=== PATIENT | female | born 1985 | race Caucasian/White ===

== ENCOUNTER 2016-05-06 11:21 | Observation (INO) | payer OTHER ==
[~2016-05-06] VITALS: Ht 170.2 cm; Wt 70.8 kg
--- NOTE | 2016-05-06 18:12 | HHI.HP ---
HPI Chief Complaint 24 week IUP with severe maternal mitral value regurgitation Date Seen: May 06, 2016 Time Seen: 18:11 Travel History International Travel<30 Days: No Contact w/Intl Traveler<30Days: No Known Affected Area: No History of Present Illness HPI 30 yo swf at 24+ weeks brought to perinatology for evaluation today from [facility]. I met her two weeks ago when she was brought to my office from care home. She has since been diverted to [facility]. She has a hx of IVDA and unfortunately developed CRUZ. in her first trimester. She is currently not using any opioids and residing at [facility]. She is complaining of SOB. She has no symptoms of fever, chills, thrombophlebitis. No symptoms of labor. GFM. She is being kept 23 hours to evaluate her cardiac status as she enters her third trimester to and make multidisciplinary plans for delivery and post care. Para: 2 : 5 Allergies-Medications (Allergen,Severity, Reaction): Coded Allergies: Cipro (Verified Allergy, Severe, Rash, 11/17/15) Home Meds No Active Prescriptions or Reported Meds Physical Exam Narrative GENERAL: Well-nourished, well-developed patient. SKIN: Warm and dry. HEAD: Normocephalic and atraumatic. EYES: No scleral icterus. No injection or drainage. ENT: No nasal drainage noted. Mucous membranes pink. Airway patent. NECK: Supple, trachea midline. No JVD. CARDIOVASCULAR:4/4 holosystolic murmur through chest and back. Not tachycardic. ? S3 EXTREMITIES: No cyanosis or edema. BACK: Nontender without obvious deformity. No CVA tenderness. NEUROLOGICAL: Awake and alert. Motor and sensory grossly within normal limits. Five out of 5 muscle strength in all muscle groups. Normal speech. See level 2 sono with reassuring evaluation Data Data Orders Us Ob Fet Echo/Dop Fl/Col/Comp (05/06/16 ) Diet Regular Basic (05/06/16 Lunch) Consult Cardiology (05/06/16 ) Echo 2d Comp W/Dopp(Routine) (05/06/16 ) ^ Activity (05/06/16 14:31) ^ Heart (05/06/16 14:31) Resp Request For Service (05/06/16 ) Vital Signs (Adult) BRAD.Q4H (05/06/16 14:31) (Hub Use Only)Inp Phy Cons/Ref (05/06/16 ) Assessment/Plan Problem List: (1) Intrauterine (2) Mitral valve regurgitation due to infection (3) Adjustment disorder with mixed anxiety and depressed mood Assessment and Plan consult and echo results pending from Dr. Tao Sanchez plan to return to [facility] and watch for cardiac decompensation in third trimester or peripartum with plans made on how to address. Karuna Fonseca MD May 06, 2016 18:12 Karuna Fonseca MD May 06, 2016 18:12
[2016-05-06 19:50] VITALS: BP 101/52; PULSE 92
[2016-05-06 19:52] VITALS: RESP 18; TEMP 98.5
--- NOTE | 2016-05-06 20:01 | EC ---
Study Study Date:05/06/2016 STUDY CONCLUSIONS SUMMARY - Left ventricle: The cavity size was normal. Systolic function was normal. The estimated ejection fraction was in the range of 60% to 65%. Wall motion was normal; there were no regional wall motion abnormalities. - Mitral valve: There was a mobile vegetation on the anterior leaflet. Moderate to severe regurgitation. - Tricuspid valve: Moderate regurgitation. - Pulmonary arteries: PA peak pressure: 31mm Hg (S). If LV function is below 40, please consider prescribing an ACEI or ARB or document rationale for non-use. PROCEDURE DATA STUDY STATUS: Elective. Procedure: Transthoracic echocardiography. Image quality was good. Scanning was performed from the parasternal, apical, and subcostal acoustic windows. Study completion: The patient tolerated the procedure well. Transthoracic echocardiography. M-mode, complete 2D, complete spectral Doppler, and color Doppler. Height: Height: 67in. Weight: Weight: 155.7lb. Body mass index: BMI: 24.4kg/m^2. Body surface area: BSA: 1.82m^2. Patient status: Inpatient. CARDIAC ANATOMY LEFT VENTRICLE: The cavity size was normal. Systolic function was normal. The estimated ejection fraction was in the range of 60% to 65%. Wall motion was normal; there were no regional wall motion abnormalities. AORTIC VALVE: The valve appears to be grossly normal. Doppler: There was no stenosis. No significant regurgitation. Valve area: 2.63cm^2 (Vmax). Indexed valve area: 1.45cm^2/m^2 (Vmax). MITRAL VALVE: There was a mobile vegetation on the anterior leaflet. Doppler: There was no evidence for stenosis. Moderate to severe regurgitation. Peak gradient: 8mm Hg (D). LEFT ATRIUM: The atrium was at the upper limits of normal in size. PULMONIC VALVE: The valve appears to be grossly normal. Doppler: There was no evidence for stenosis. Trace to mild regurgitation. TRICUSPID VALVE: The valve appears to be grossly normal. Doppler: There was no evidence for stenosis. Moderate regurgitation. PERICARDIUM: There was no pericardial effusion. Patient weight: 155.7lb _Ejection fraction:_ 65-75% _Fractional shortening:_ 32% up to 5Kg 5-11.5Kg 11.6-22.9Kg 23-45Kg 45-57Kg Aortic Root 7-13 <17 13-22 17-27 17-27 LA diam 6-13 <23 24-38 33-47 37-40 RVID 10-17 7-15 7-15 7-18 8-17 LVIDd 12-22 <32 24-38 33-47 37-40 LVPW 2-4 3-6 5-7 6-8 7-8 IVS 2-4 3-6 5-7 6-8 7-8 BASIC MEASUREMENTS ADULT NORMAL Left ventricle LV internal dimension, ED, chordal *60.4 mm 43-52 level, PLAX LV internal dimension, ES, chordal *40.9 mm 23-38 level, PLAX Fractional shortening, chordal level, 32 % >29 PLAX LV posterior wall thickness, ED 7.33 mm IVS/LVPW ratio, ED 1.02 <1.3 Ventricular septum Septal thickness, ED 7.48 mm Aortic valve Leaflet separation 16 mm 15-26 BASIC MEASUREMENTS ADULT NORMAL Aortic valve Leaflet separation 16 mm 15-26 Aorta Root diameter, ED *18 mm 20-37 Left atrium Anterior-posterior dimension, ES 37 mm 19-40 Anterior-posterior dimension index, ES 2.03 cm/m^2 <2.2 LA/aortic root ratio 2.06 DOPPLER MEASUREMENTS ADULT NORMAL Main pulmonary artery Pressure, S *31 mm Hg =30 Pressure, ED 16 mm Hg Aortic valve Peak velocity, S 124 cm/s Valve area, Vmax 2.63 cm^2 Valve area index, Vmax 1.45 cm^2/m^2 Mitral valve Peak E-wave velocity 140 cm/s Peak A-wave velocity 67.6 cm/s Deceleration time 218 ms 150-230 Peak gradient, D 8 mm Hg Peak E/A ratio 2.1 Maximal regurgitant velocity 348 cm/s Tricuspid valve Regurgitant peak velocity 265 cm/s Peak RV-RA gradient, S 28 mm Hg Maximal regurgitant velocity 265 cm/s Systemic veins Estimated CVP 10 mm Hg Right ventricle RV pressure, S *38 mm Hg <30 Pulmonic valve Peak velocity, S 128 cm/s Regurgitant velocity, ED 124 cm/s LEGEND: Mean values are shown as u=mean value. Asterisk (*) alarcon values outside specified normal range. Prepared and signed by Marco Aponte [id number]
[2016-05-06 23:23] VITALS: BP 102/57; PULSE 86
[2016-05-06 23:25] VITALS: RESP 18
[2016-05-06 23:26] VITALS: TEMP 98.3
[2016-05-07 04:56] VITALS: BP 95/60; PULSE 83; RESP 16; TEMP 98.3
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
--- NOTE | 2016-05-07 08:13 | PD.OB.ANTE ---
Subjective Diagnosis: (1) Intrauterine (2) Mitral valve regurgitation due to infection (3) Adjustment disorder with mixed anxiety and depressed mood Interval History Quiet night with good movement good sleep in supine position with no SOB or orthopnea no contractions Objective Vital Signs Vital Signs Date Time Temp Pulse Resp B/P Pulse Ox O2 Delivery O2 Flow Rate FiO2 05/07/16 04:56 98.3 16 05/07/16 04:56 83 95/60 05/06/16 23:26 98.3 05/06/16 23:25 18 05/06/16 23:23 86 102/57 05/06/16 19:52 98.5 18 05/06/16 19:50 92 101/52 Physical Exam GENERAL: Well-nourished, well-developed patient. CARDIOVASCULAR: Regular rate and rhythm without murmurs, gallops, or rubs. RESPIRATORY: Breath sounds equal bilaterally. No accessory muscle use. ABDOMEN/GI: Abdomen soft, non-tender. Fundus: [-] GENITOURINARY: External Genitalia: intact and normal in appearance cervix closed strip appropriate for age level 2 sono reassuring murmur present EXTREMITIES: No cyanosis or edema, non-tender, without signs of DVT. Assessment and Plan Problem List: (1) Intrauterine Status: Acute (2) Mitral valve regurgitation due to infection Status: Acute (3) Adjustment disorder with mixed anxiety and depressed mood Status: Acute Assessment and Plan return to [facility] today watch for decompensation develop care plan for delivery Karuna Fonseca MD May 07, 2016 08:13
--- NOTE | 2016-05-07 08:14 | HHI.DCPOC ---
Discharge Care Plan Report Symptoms to Your Doctor -Temperate above 100.5 degrees -Redness, of incision or excessive or foul smelling drainage -Unusual pain or calf pain -Increased vaginal bleeding -Painful or difficulty urinating -Feelings of extreme sadness or anxiety after 2 weeks Goals to Promote Your Health * To prevent worsening of your condition and complications * To maintain your health at the optimal level Directions to Meet Your Goals Take your medications as prescribed Follow your dietary instruction Follow activity as directed Ensure plenty of rest for recovery Drink fluids for hydration Keep your appointments as scheduled Take your immunizations and boosters as scheduled If your symptoms worsen call your PCP, if no PCP go to Urgent Care Center or Emergency Room Smoking is Dangerous to Your Health. Avoid second hand smoke Call the 24-hour crisis hotline for domestic abuse at Karuna Fonseca MD May 07, 2016 08:14
[2016-05-07 09:31] VITALS: BP 91/54; PULSE 85
[2016-05-07 09:32] VITALS: RESP 18; TEMP 98.3
--- NOTE | 2016-05-07 11:55 | PD.CARD.PN ---
Subjective Subjective Remarks No chest pain, no shortness of breath Objective Vital Signs / I&O Vital Signs Date Time Temp Pulse Resp B/P Pulse Ox O2 Delivery O2 Flow Rate FiO2 05/07/16 09:32 98.3 18 05/07/16 09:31 85 91/54 05/07/16 04:56 98.3 16 05/07/16 04:56 83 95/60 05/06/16 23:26 98.3 05/06/16 23:25 18 05/06/16 23:23 86 102/57 05/06/16 19:52 98.5 18 05/06/16 19:50 92 101/52 Physical Exam GENERAL: NAD, AAOx3 SKIN: Warm and dry. HEAD: Atraumatic. Normocephalic. EYES: Pupils equal and round. No scleral icterus. No injection or drainage. ENT: No nasal bleeding or discharge. Mucous membranes pink and moist. NECK: Trachea midline. No JVD. CARDIOVASCULAR: Regular rate and rhythm. 3/6 holosystolic murmur at the apex, radiating to the back/throughout the chest RESPIRATORY: No accessory muscle use. Clear to auscultation. Breath sounds equal bilaterally. GASTROINTESTINAL: Abdomen soft, non-tender, nondistended. Hepatic and splenic margins not palpable. MUSCULOSKELETAL: Extremities without clubbing, cyanosis, or edema. No obvious deformities. NEUROLOGICAL: Awake and alert. No obvious cranial nerve deficits. Motor grossly within normal limits. Five out of 5 muscle strength in the arms and legs. Normal speech. PSYCHIATRIC: Appropriate mood and affect; insight and judgment normal. Assessment and Plan Problem List: (1) Intrauterine (2) Mitral valve regurgitation due to infection (3) Endocarditis (4) IVDU (intravenous drug user) Assessment and Plan 1) Endocarditis from previous IVDU 2) Severe MR, no change from previous 3) Discussed with Dr. Fonseca, concern for severe MR and symptoms, NYHA 2-3, still with a ways to go with her and increased blood volume may tip her towards NYHA 3, would consider delivery/care at a tertiary center with cardiac monitoring Marco Aponte DO May 07, 2016 11:55
[2016-05-07 12:38] VITALS: BP 99/61; PULSE 89; RESP 16; TEMP 98.2
== END 2016-05-07 13:45 | disposition home or self-care (01) ==
LOC: HPND 11:21 → H2EA 12:43 → INTOOBSV 12:43
PROVIDERS: ADMIT Obstetrics & Gynecology; ATTEND Obstetrics & Gynecology
DX: O99.413 Diseases of the circulatory system complicating pregnancy, third trimester (principal); I34.8 Other nonrheumatic mitral valve disorders; F19.10 Other psychoactive substance abuse, uncomplicated; F43.10 Post-traumatic stress disorder, unspecified; O09.72 Supervision of high risk pregnancy due to social problems, second trimester; O99.342 Other mental disorders complicating pregnancy, second trimester; F43.23 Adjustment disorder with mixed anxiety and depressed mood; Z3A.24 24 weeks gestation of pregnancy
CPT/HCPCS: 76811; 76825; 76827; 93306; 93325; G0378

== ENCOUNTER 2016-06-03 10:05 | Observation (INO) | payer MEDICAID, OTHER ==
[2016-06-03] VITALS (8 sets, daily range): BP systolic 97–105; BP diastolic 57–68; PULSE 80–95; RESP 20; TEMP 97.7–98.1; O2SAT 100
[2016-06-03 14:13] LABS: AUTOMATED NEUTROPHIL # 6.3 TH/MM3 (1.8-7.7); BASOPHIL % 0.4 % (0.0-2.0); EOSINOPHIL # 0.1 TH/MM3 (0-0.4); HEMO FLAGS DIFF FINAL; LYMPH % 19.1 % (9.0-44.0); LYMPHOCYTE # 1.6 TH/MM3 (1.0-4.8); MEAN CELL VOLUME 99.3 FL (80.0-100.0); MEAN CORPUSCULAR HEMOGLOBIN 33.9 PG (27.0-34.0); MEAN CORPUSCULAR HGB CONC 34.2 % (32.0-36.0); MONO % 6.3 % (0.0-8.0); NEUT % 73.2 % (16.0-70.0); PLATELET COUNT 169 TH/MM3 (150-450); RED BLOOD COUNT 3.52 MIL/MM3 (4.00-5.30); WHITE BLOOD COUNT 8.5 TH/MM3 (4.0-11.0)
--- NOTE | 2016-06-03 20:49 | HHI.HP ---
HPI Chief Complaint increasing shortness of breath, fatigue due to severe mitral regurgitation (due to CRUZ in first trimester) Currently 28 weeks Date Seen: Jun 03, 2016 Time Seen: 12:00 Travel History International Travel<30 Days: No Contact w/Intl Traveler<30Days: No Known Affected Area: No History of Present Illness HPI 30 yo wf at 28 2/7 weeks EGA who resides currently at [facility]. She was diagnosed with CRUZ in her first trimester of this and developed a significant mitral regurgitation. Her treatment at that time was truncated by her AMA departure. She was then incarcerated and diverted to [facility], I met her at about 22 weeks EGA. She was evaluated here on antepartum four weeks ago by Tao Dotson. It was recommended that she deliver at a tertiary care center, due to the profound cardiovascular changes of delivery and risk for decompensation. I have been in the process of getting her medicaid HMO changed to one accepted by [facility]. We hope to have her evaluated there soon. She is currently at [facility] and trying to participate in the programs. 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 She know states walking down a penny produces profound fatique. She has no productive cough. No fever or chills. She can lay down flat. There is GFM. No leaking or bleeding. She feels her symptoms are progressive. History Past Medical History Narrative Medical history of IV Drug use--over one year's total duration, She is currently in recovery off all opioids and benzos. Obstetric History Obstetric History Social History Alcohol Use: Yes Tobacco Use: Yes Substance Abuse: Yes Allergies-Medications (Allergen,Severity, Reaction): Coded Allergies: Cipro (Verified Allergy, Severe, Rash, 11/17/15) Home Meds No Active Prescriptions or Reported Meds Review of Systems HENT: Lightheadedness Cardiovascular: Tachycardia Respiratory: Short of Breath Gastrointestinal: Loss of Appetite Psychiatric: Substance Abuse Physical Exam Vital Signs Date Time Temp Pulse Resp B/P Pulse Ox O2 Delivery O2 Flow Rate FiO2 06/03/16 19:51 97.7 20 06/03/16 19:51 95 105/68 100 06/03/16 18:11 97.9 06/03/16 18:11 82 20 97/57 06/03/16 14:00 89 06/03/16 12:50 81 06/03/16 12:45 82 06/03/16 12:40 80 Narrative GENERAL: Well-nourished, well-developed patient. SKIN: Warm and dry. HEAD: Normocephalic and atraumatic. EYES: No scleral icterus. No injection or drainage. ENT: No nasal drainage noted. Mucous membranes pink. Airway patent. NECK: Supple, trachea midline. No JVD. CARDIOVASCULAR: Regular rate and rhythm 5/6 loud holosystolic murmur over mitral area. heard through the back RESPIRATORY: Breath sounds equal bilaterally. No accessory muscle use. BREASTS: Bilateral exam showed no masses , no retractions, no nipple discharge. ABDOMEN/GI: Abdomen soft, non-tender, bowel sounds present, no rebound, no guarding Gravid to [-] weeks size 28 cm FHT's: Category one cerix 1cm long EXTREMITIES: No cyanosis or edema. BACK: Nontender without obvious deformity. No CVA tenderness. NEUROLOGICAL: Awake and alert. Motor and sensory grossly within normal limits. Five out of 5 muscle strength in all muscle groups. Normal speech. Data Data Orders Us Ob Repeat/Fu(Growth) (06/03/16 ) Vital Signs (Adult) BRAD.Q4H (06/03/16 12:28) ^ Heart (06/03/16 12:28) Diet Regular Basic (06/03/16 Lunch) ^ Instruction (06/03/16 12:28) Complete Blood Count With Diff (06/03/16 12:28) Hepatitis C Rna Genotype (06/03/16 12:28) ^ Call Physician (06/03/16 12:28) Consult Cardiology (06/03/16 ) (Hub Use Only)Inp Phy Cons/Ref (06/03/16 ) Labs Laboratory Tests Test 06/03/16 14:03 White Blood Count 8.5 Red Blood Count 3.52 Hemoglobin 11.9 Hematocrit 35.0 Mean Corpuscular Volume 99.3 Mean Corpuscular Hemoglobin 33.9 Mean Corpuscular Hemoglobin 34.2 Concent Red Cell Distribution Width 13.0 Platelet Count 169 Mean Platelet Volume 8.3 Neutrophils (%) (Auto) 73.2 Lymphocytes (%) (Auto) 19.1 Monocytes (%) (Auto) 6.3 Eosinophils (%) (Auto) 1.0 Basophils (%) (Auto) 0.4 Neutrophils # (Auto) 6.3 Lymphocytes # (Auto) 1.6 Monocytes # (Auto) 0.5 Eosinophils # (Auto) 0.1 Basophils # (Auto) 0.0 CBC Comment DIFF FINAL Differential Comment Assessment/Plan Assessment and Plan 28 week IUP with increasing SOB and fatigue perinatologist today very concerned that she is decompensating clinically. Asked for us to obtain cardiology follow up to assess for deterioration in maternal status. This is not possible outslide the hospital so she will be placed on observation,. I am working on transfer of care to [facility] or reassurance than she can deliver here safely. Karuna Fonseca MD Jun 03, 2016 20:49
[2016-06-04] VITALS (14 sets, daily range): BP systolic 83–111; BP diastolic 48–63; PULSE 79–95; RESP 18–20; TEMP 97.8–98.2; O2SAT 98–100
--- NOTE | 2016-06-04 13:12 | PD.OB.ANTE ---
Subjective Interval History Placed in house for observation and evaluation of cardiac status and able to tolerate physical activity She has severe mitral regurg and a third trimester developing fetus She had to quit working in the kitchen at [facility] and cannot complete her expected tasks, due to shortness of breath and extreme fatigue Antepartum ROS: Reports: movement normal Objective Vital Signs Vital Signs Date Time Temp Pulse Resp B/P Pulse Ox O2 Delivery O2 Flow Rate FiO2 06/04/16 12:37 95 18 98/54 98 06/04/16 12:37 86 06/04/16 12:37 97.8 06/04/16 08:24 84 100/60 06/04/16 08:00 83 19 06/04/16 07:00 98.2 06/04/16 04:41 20 06/04/16 04:33 83 06/04/16 04:33 97.9 107/57 99 06/03/16 23:09 98.1 06/03/16 23:08 90 105/57 06/03/16 23:08 20 06/03/16 19:51 97.7 20 06/03/16 19:51 95 105/68 100 06/03/16 18:11 97.9 06/03/16 18:11 82 20 97/57 06/03/16 14:00 89 Lab & Micro Results Test 06/03/16 06/04/16 14:03 06:48 White Blood Count 8.5 TH/MM3 Red Blood Count 3.52 MIL/MM3 Hemoglobin 11.9 GM/DL Hematocrit 35.0 % Mean Corpuscular Volume 99.3 FL Mean Corpuscular Hemoglobin 33.9 PG Mean Corpuscular Hemoglobin 34.2 % Concent Red Cell Distribution Width 13.0 % Platelet Count 169 TH/MM3 Mean Platelet Volume 8.3 FL Neutrophils (%) (Auto) 73.2 % Lymphocytes (%) (Auto) 19.1 % Monocytes (%) (Auto) 6.3 % Eosinophils (%) (Auto) 1.0 % Basophils (%) (Auto) 0.4 % Neutrophils # (Auto) 6.3 TH/MM3 Lymphocytes # (Auto) 1.6 TH/MM3 Monocytes # (Auto) 0.5 TH/MM3 Eosinophils # (Auto) 0.1 TH/MM3 Basophils # (Auto) 0.0 TH/MM3 CBC Comment DIFF FINAL Differential Comment Glucose 1 Hour Challenge 136 MG/DL Physical Exam GENERAL: Well-nourished, well-developed patient. CARDIOVASCULAR: Regular rate and rhythm grade 5 holosystolic murmur heard throughout chest and back. RESPIRATORY: Breath sounds equal bilaterally. No accessory muscle use. No wheezes or rhonci ABDOMEN/GI: Abdomen soft, non-tender. 29 strip category EXTREMITIES: No cyanosis or edema, non-tender, without signs of DVT. Assessment and Plan Assessment and Plan 28 week IUP with increasing SOB and fatigue perinatologist concerned that she is decompensating clinically. Asked for us to obtain cardiology follow up to assess for deterioration in maternal status. This is not possible outslide the hospital so she will be placed on observation, . We will also assess physical activity tolerance. I am working on transfer of care to [facility] or reassurance than she can deliver here safely. Karuna Fonseca MD Jun 04, 2016 13:12
--- NOTE | 2016-06-04 20:32 | PD.OB.ANTE ---
Subjective Interval History Evaluation by physical therapy reassuring O2 saturation good it assistant has not yet been here. will order echo directly Objective Vital Signs Vital Signs Date Time Temp Pulse Resp B/P Pulse Ox O2 Delivery O2 Flow Rate FiO2 06/04/16 19:48 20 100 06/04/16 19:47 87 111/63 06/04/16 16:30 86 101/58 06/04/16 16:00 98.1 98 06/04/16 13:30 89 100 06/04/16 13:20 88 100 06/04/16 12:37 95 18 98/54 98 06/04/16 12:37 86 06/04/16 12:37 97.8 06/04/16 08:24 84 100/60 06/04/16 08:00 83 19 06/04/16 07:00 98.2 06/04/16 04:41 20 06/04/16 04:33 83 06/04/16 04:33 97.9 107/57 99 06/03/16 23:09 98.1 06/03/16 23:08 90 105/57 06/03/16 23:08 20 Lab & Micro Results Test 06/04/16 06:48 Glucose 1 Hour Challenge 136 MG/DL Physical Exam GENERAL: Well-nourished, well-developed patient. CARDIOVASCULAR: Regular rate and rhythm without murmurs, gallops, or rubs. RESPIRATORY: Breath sounds equal bilaterally. No accessory muscle use. ABDOMEN/GI: Abdomen soft, non-tender. Fundus: [-] GENITOURINARY: External Genitalia: intact and normal in appearance Cervix: [-] Dilatation: [-] Effacement: [-] Station: [-] Presentation: [-] Membranes: [-] Uterine Contractions: [-] FHT's: Category: [-] Baseline: [-] Reactive: [-] Variability: [-] Decels: [-] EXTREMITIES: No cyanosis or edema, non-tender, without signs of DVT. Assessment and Plan Assessment and Plan 28 week IUP with increasing SOB and fatigue perinatologist concerned that she is decompensating clinically. Asked for us to obtain cardiology follow up to assess for deterioration in maternal status. This is not possible outslide the hospital so she will be placed on observation, . We will also assess physical activity tolerance. I am working on transfer of care to [facility] or reassurance than she can deliver here safely. Karuna Fonseca MD Jun 04, 2016 20:32
[2016-06-04] MEDS: FAMOTIDINE 20 MG TAB PO SCH (22:45)
[2016-06-05 05:00] VITALS: TEMP 97.9
[2016-06-05 05:08] VITALS: BP 96/57; PULSE 87
[2016-06-05 05:09] VITALS: RESP 18; O2SAT 97
--- NOTE | 2016-06-05 06:54 | PD.OB.ANTE ---
Subjective Interval History Quiet night no new complaints feeling better with rest in last 48 hours good FM still perceives shortness of breath with exertion still fatigued unclear what degree related to normal and what degree related to severe mitral regurgitation Objective Vital Signs Vital Signs Date Time Temp Pulse Resp B/P Pulse Ox O2 Delivery O2 Flow Rate FiO2 06/05/16 05:09 18 97 06/05/16 05:08 87 96/57 06/05/16 05:00 97.9 06/04/16 23:32 82 105/59 06/04/16 23:30 79 06/04/16 23:30 83/48 06/04/16 23:30 97.8 99 06/04/16 19:48 20 100 06/04/16 19:47 87 111/63 06/04/16 16:30 86 101/58 06/04/16 16:00 98.1 98 06/04/16 13:30 89 100 06/04/16 13:20 88 100 06/04/16 12:37 95 18 98/54 98 06/04/16 12:37 86 06/04/16 12:37 97.8 06/04/16 08:24 84 100/60 06/04/16 08:00 83 19 06/04/16 07:00 98.2 Physical Exam GENERAL: Well-nourished, well-developed patient. CARDIOVASCULAR: Regular rate and rhythm without murmurs, gallops, or rubs. RESPIRATORY: Breath sounds equal bilaterally. No accessory muscle use. ABDOMEN/GI: Abdomen soft, non-tender. Fundus: [-] GENITOURINARY: External Genitalia: intact and normal in appearance Cervix: [-] Dilatation: [-] Effacement: [-] Station: [-] Presentation: [-] Membranes: [-] Uterine Contractions: [-] FHT's: Category: [-] Baseline: [-] Reactive: [-] Variability: [-] Decels: [-] EXTREMITIES: No cyanosis or edema, non-tender, without signs of DVT. Assessment and Plan Assessment and Plan 28 week IUP with increasing SOB and fatigue perinatologist concerned that she is decompensating clinically. Asked for us to obtain cardiology follow up to assess for deterioration in maternal status. This is not possible outslide the hospital so she will be placed on observation, . We will also assess physical activity tolerance. I am working on transfer of care to [facility] or reassurance than she can deliver here safely. Karuna Fonseca MD Jun 05, 2016 06:54
[2016-06-05 08:20] VITALS: BP 153/114; PULSE 111
[2016-06-05 08:22] VITALS: BP 91/53; PULSE 81
[2016-06-05] MEDS: FAMOTIDINE 20 MG TAB PO SCH (09:03)
--- NOTE | 2016-06-05 10:08 | PD.OB.ANTE ---
Subjective Interval History Seen this am by Dr. Aponte who reaffirms delivery in a tertiary center. Stable otherwise for now with no dangerous progression clinically. She is ready for return to [facility] and they have been notified by me. Denies leaking, bleeding, nausea, vomiting, or symptoms of infection. Good movement with reassuring surveillance. Will see weekly and try to work out outpatient follow up for cardiology and transfer to tertiary facility when appropriate. Objective Vital Signs Vital Signs Date Time Temp Pulse Resp B/P Pulse Ox O2 Delivery O2 Flow Rate FiO2 06/05/16 08:22 81 91/53 06/05/16 08:20 111 153/114 06/05/16 05:09 18 97 06/05/16 05:08 87 96/57 06/05/16 05:00 97.9 06/04/16 23:32 82 105/59 06/04/16 23:30 79 06/04/16 23:30 83/48 06/04/16 23:30 97.8 99 06/04/16 19:48 20 100 06/04/16 19:47 87 111/63 06/04/16 16:30 86 101/58 06/04/16 16:00 98.1 98 06/04/16 13:30 89 100 06/04/16 13:20 88 100 06/04/16 12:37 95 18 98/54 98 06/04/16 12:37 86 06/04/16 12:37 97.8 Physical Exam GENERAL: Well-nourished, well-developed patient. CARDIOVASCULAR: Regular rate and rhythm without murmurs, gallops, or rubs. RESPIRATORY: Breath sounds equal bilaterally. No accessory muscle use. ABDOMEN/GI: Abdomen soft, non-tender. Fundus: [-] GENITOURINARY: External Genitalia: intact and normal in appearance Cervix: [-] Dilatation: [-] Effacement: [-] Station: [-] Presentation: [-] Membranes: [-] Uterine Contractions: [-] FHT's: Category: [-] Baseline: [-] Reactive: [-] Variability: [-] Decels: [-] EXTREMITIES: No cyanosis or edema, non-tender, without signs of DVT. Assessment and Plan Assessment and Plan 28 week IUP with increasing SOB and fatigue perinatologist concerned that she is decompensating clinically. Asked for us to obtain cardiology follow up to assess for deterioration in maternal status. This is not possible outslide the hospital so she will be placed on observation, . We will also assess physical activity tolerance. I am working on transfer of care to [facility] or reassurance than she can deliver here safely. Karuna Fonseca MD Jun 05, 2016 10:08
--- NOTE | 2016-06-05 10:24 | HHI.DCPOC ---
Discharge Care Plan Report Symptoms to Your Doctor -Temperate above 100.5 degrees -Redness, of incision or excessive or foul smelling drainage -Unusual pain or calf pain -Increased vaginal bleeding -Painful or difficulty urinating -Feelings of extreme sadness or anxiety after 2 weeks Goals to Promote Your Health * To prevent worsening of your condition and complications * To maintain your health at the optimal level Directions to Meet Your Goals Take your medications as prescribed Follow your dietary instruction Follow activity as directed Ensure plenty of rest for recovery Drink fluids for hydration Keep your appointments as scheduled Take your immunizations and boosters as scheduled If your symptoms worsen call your PCP, if no PCP go to Urgent Care Center or Emergency Room Smoking is Dangerous to Your Health. Avoid second hand smoke Call the 24-hour crisis hotline for domestic abuse at Karuna Fonseca MD Jun 05, 2016 10:24
[2016-06-06 09:52] LABS: HCV RNA PCR LOGIU/ML 6.47 (())
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
== END 2016-06-05 10:49 | disposition home or self-care (01) ==
LOC: HPND 10:05 → H2EA 12:12
PROVIDERS: ADMIT Obstetrics & Gynecology; ATTEND Obstetrics & Gynecology
DX: O99.412 Diseases of the circulatory system complicating pregnancy, second trimester (principal); I50.21 Acute systolic (congestive) heart failure; O99.332 Smoking (tobacco) complicating pregnancy, second trimester; F17.200 Nicotine dependence, unspecified, uncomplicated; I05.1 Rheumatic mitral insufficiency; O99.342 Other mental disorders complicating pregnancy, second trimester; F32.9 Major depressive disorder, single episode, unspecified; F43.10 Post-traumatic stress disorder, unspecified; F41.9 Anxiety disorder, unspecified; Z3A.28 28 weeks gestation of pregnancy
CPT/HCPCS: 76816; 82951; 85025; 87522; 87902; 97161; G0378

== ENCOUNTER 2016-06-26 00:31 | Emergency (ER) | payer MEDICAID, OTHER ==
--- NOTE | 2016-06-26 01:32 | PD ---
HPI Chief Complaint Cramping Date Seen: Jun 26, 2016 Travel History International Travel<30 Days: No Contact w/Intl Traveler<30Days: No Known Affected Area: No History of Present Illness HPI This patient is a 30-year-old white female [address] Fonseca for care presents complaining of lower abdominal cramping of for approximately a day, denies bleeding or rupture the membranes. She's had some slight discharge vaginally. heart rate tracing is reactive no contractions seen. The patient is a known IV drug abuser Para: 2 : 3 History Past Medical History Narrative Medical Known IV drug abuser endocarditis Obstetric History Obstetric History 2 vaginal deliveries Social History Alcohol Use: Yes Tobacco Use: Yes Substance Abuse: Yes Allergies-Medications (Allergen,Severity, Reaction): Coded Allergies: Cipro (Verified Allergy, Severe, Rash, 11/17/15) Home Meds No Active Prescriptions or Reported Meds Review of Systems General / Constitutional: No: Fever, Weight Gain, Chills, Other Eyes: No: Diploplia, Blurred Vision, Visual changes, Pain, Photophobia HENT: No: Headaches, Vertigo, Lightheadedness Cardiovascular: No: Irregular Rhythm, Chest Pain or Discomfort, Palpitations, Tachycardia, Syncope, Varicosities, Edema, Cyanosis Respiratory: No: Cough, Short of Breath, Other Gastrointestinal: Abdominal Pain, No: Nausea, Vomiting, Diarrhea Genitourinary: No: Decreased Urinary Output, Oliguria Musculoskeletal: No: Limited ROM, Weakness, Cramping, Edema, Pain Skin: No Rash, No Itching, No Dryness, No Lumps, No Change in Pigmentation, No Change in Nails, No Alopecia, No Lesions Neurologic: No: Weakness, Dizziness, Syncope, Focal Abnormalities, Coordination Problem, Headache, Slurred Speech, Seizures Psychiatric: No: Depression, Suicidal Ideations, Homicidal Ideation Endocrine: No: Heat Intolerance, Cold Intolerance, Polydipsia, Polyuria, Other Physical Exam Narrative GENERAL: Well-nourished, well-developed patient. SKIN: Warm and dry. HEAD: Normocephalic and atraumatic. EYES: No scleral icterus. No injection or drainage. ENT: No nasal drainage noted. Mucous membranes pink. Airway patent. NECK: Supple, trachea midline. No JVD. CARDIOVASCULAR: Regular rate and rhythm without murmurs, gallops, or rubs. RESPIRATORY: Breath sounds equal bilaterally. No accessory muscle use. BREASTS: Bilateral exam showed no masses , no retractions, no nipple discharge. ABDOMEN/GI: Abdomen soft, non-tender to palpation, bowel sounds present, no rebound, no guarding Gravid to [30-] weeks size Fundal Height: [-30] GENITOURINARY: External Genitalia: intact and normal in appearance BUS glands: [-] Cervix: [-] Dilatation: [-Closed at the internal os fingertip external os] Effacement: [Thick-] Station: [-3] Membranes: [intact ] Uterine Contractions: [-none] FHT's: Category: [-1] Baseline: [115-] Reactive: [-yes] Variability: [-mod] Decels: [none-] EXTREMITIES: No cyanosis or edema. BACK: Nontender without obvious deformity. No CVA tenderness. NEUROLOGICAL: Awake and alert. Motor and sensory grossly within normal limits. Five out of 5 muscle strength in all muscle groups. Normal speech. MDM Interpretation(s) This patient is 30-year-old white female 32 weeks presents with lower abdominal cramping, no bleeding or leakage of fluid. heart rate tracing reactive and there are no contractions. She is followed by Dr. Fonseca due to her history of IV drug use urinalysis is pending at time of this dictation but the antibiotics will be provided prior to discharge per the findings that urinalysis is positive Plan The patien should try to treat her pain conservatively at home with by mouth Tylenol she's been using at home, increase her fluid intake, and she may use a heating pad on low across the lower abdomen. She also may try soaking in hot bath as well, and as stated prior if urinalysis is positive she'll be sent home with antibiotic Macrobid 100 mg by mouth twice a day Diagnosis Diagnosis: Primary Impression: related bilateral lower abdominal pain, antepartum Disposition: DISCHARGE HOME Condition: Stable Scripts No Active Prescriptions or Reported Meds Elías Verduzco II, MD Jun 26, 2016 01:32
[2016-06-26] MEDS ORDERED: VITA100036 PO (01:40)
[2016-06-26] MEDS ORDERED: BUSP10TA PO (01:40)
[2016-06-26] MEDS ORDERED: ZANT150T2 PO (01:40)
[2016-06-26] MEDS ORDERED: LEVO50TA4 PO (01:40)
[2016-06-26] MEDS ORDERED: ZYRT10CA PO (01:40)
[2016-06-26] MEDS ORDERED: CALNTAB (01:40)
[2016-06-26 02:05] LABS: BACTERIA, URINE RARE /hpf; BLOOD, URINE NEG (NEG); COMMENT (UR) CULT NOT INDICATED; CULTURE IF INDICATED CULT NOT INDICATED; GLUCOSE,URINE NEG (NEG); KETONE, URINE NEG (NEG); NITRITE,URINE NEG (NEG); SQUAMOUS EPITHELIAL CELL URINE 1 /hpf (0-5); URINE COLOR LIGHT-YELLOW (YELLW/STRAW)
== END 2016-06-26 02:18 | disposition home or self-care (01) ==
LOC: HOBED 00:31
DX: O26.893 Other specified pregnancy related conditions, third trimester (principal); R10.30 Lower abdominal pain, unspecified; Z72.0 Tobacco use; Z3A.32 32 weeks gestation of pregnancy
CPT/HCPCS: 81001; 99284

== ENCOUNTER → 2016-07-01 | Outpatient (CLI) | payer MEDICAID, OTHER ==
[~2016-07-01] MED LIST: BUSP10TA PO; CALNTAB; LEVO50TA4 PO; VITA100036 PO; ZANT150T2 PO; ZYRT10CA PO
== END ==
LOC: HPND 11:47
PROVIDERS: ATTEND Obstetrics & Gynecology
DX: O35.5XX0 Maternal care for (suspected) damage to fetus by drugs, not applicable or unspecified (principal); O35.2XX0 Maternal care for (suspected) hereditary disease in fetus, not applicable or unspecified; O99.323 Drug use complicating pregnancy, third trimester
CPT/HCPCS: 76816

== ENCOUNTER 2016-07-10 16:16 | Emergency (ER) | payer MEDICAID ==
--- NOTE | 2016-07-10 17:38 | PD ---
HPI Chief Complaint brown discharge, abdominal cramping Date Seen: Jul 10, 2016 (Jose Oswald MD R2) Travel History International Travel<30 Days: No Contact w/Intl Traveler<30Days: No (Jose Oswald MD R2) History of Present Illness HPI Ms. Kim is a [address] Fonseca at 33 5/7 weeks (UYEN 2016) who presents with complaint of brown vaginal discharge and abdominal cramping starting today. Patient states that she contacted Dr. Fonseca today regarding her symptoms and was advised to go to OB ED for further evaluation. Patient states that she had moderate quantity of brownish discharge earlier today in toilet using bathroom but states that it is subsided currently. Patient denies any obvious bleeding or reddish coloration of discharge. Patient states that her abdominal cramping has occurred sporadically (34 times ) today and lasts approximately 30 seconds at a time. Patient also reports decreased movement earlier today but states that she has felt her fetus move normally since arriving OB ED. Patient reports left leg swelling recently , and chronic shortness of breath during . No dysuria. No headaches, vision changes, chest pain, nausea/vomiting, or other symptoms at this time. Patient reports history/past medical history of endocarditis, hepatitis C, hypothyroidism, and anxiety. Due to these comorbidities, patient sees MFM at [facility] weekly. Patient states that US imaging did not show any abnormalities. Regarding patient's hepatitis C, she states that she has had recent LFT elevations which are being followed up. Regarding patient's endocarditis, patient states that she was diagnosed in 10/2015 with mitral and tricuspid valvular abnormalities. She states that she has plans for open valvular repair following delivery. Patient reports recent diagnosis of hyperthyroidism in that she was placed on 50 g Synthroid daily. Patient reports taking Buspar chronically for anxiety. Patient reports history of tobacco abuse, cocaine abuse, and IV Dilaudid abuse early in but states that she has stopped using substances since January 2016. Patient currently resides at [facility]. Para: 2 : 3 (Jose Oswald MD R2) History Past Medical History Narrative Medical Endocarditisdiagnosed 10/2015. Reported mitral and tricuspid pathology; plans for post delivery without replacement Hypothyroidism on Synthroid Anxiety Hepatitis C (Jose Oswald MD R2) Obstetric History Obstetric History 002 Full term vaginal delivery in 2007 Full term vaginal delivery in 2012 (Jose Oswald MD R2) Past Surgical History Narrative Surgical None reported (Jose Oswald MD R2) Family History Narrative Family History Diabetes Coronary artery disease Unspecified cancer (Jose Oswald MD R2) Social History Narrative Social History Patient lives at [facility] Prior IV Dilaudid, cocaine, and tobacco abuse; no illicit substances since 2015 (Jose Oswald MD R2) Allergies-Medications (Allergen,Severity, Reaction): Coded Allergies: Cipro (Verified Allergy, Severe, Rash, 11/17/15) Home Meds Reported Medications Cholecalciferol (Vitamin D3)1,000 Unit Cap4,000 Units PO DAILY #1 BOTTLE Ref 0 06/26/16 Buspirone 10 Mg Tab10 Mg PO TID Ref 0 06/26/16 Levothyroxine 50 Mcg Tab50 Mcg PO DAILY #30 TAB Ref 0 06/26/16 Cetirizine (Zyrtec Allergy)10 Mg Cap10 Mg PO DAILY Ref 0 06/26/16 Ranitidine (Zantac)150 Mg [id number] Mg PO BID #60 TAB Ref 0 06/26/16 Vitamin (Calna)1 Tab Tab 06/26/16 Review of Systems General / Constitutional: No: Fever, Chills Eyes: No: Blurred Vision HENT: No: Headaches Cardiovascular: No: Chest Pain or Discomfort Respiratory: Short of Breath (throughout (patient attributes to endocarditis)) Gastrointestinal: No: Nausea, Vomiting, Diarrhea Genitourinary: No: Urgency, Dysuria Neurologic: No: Dizziness Psychiatric: Anxiety (chronic) (Jose Oswald MD R2) Physical Exam BP 100/65 HR 85 Narrative GENERAL: Well-nourished, well-developed patient. SKIN: Warm and dry. HEAD: Normocephalic and atraumatic. EYES: No scleral icterus. No injection or drainage. ENT: No nasal drainage noted. Mucous membranes pink. Airway patent. NECK: No thyromegaly appreciated; no lymphadenopathy appreciated CARDIOVASCULAR: Regular rate and rhythm; 34/6 systolic murmur present. Normal perfusion RESPIRATORY: CTA B, normal rate ABDOMEN/GI: Abdomen soft, non-tender, bowel sounds present, no rebound, no guarding Gravid EXTREMITIES: No appreciable edema in lower extremities bilaterally. No calf asymmetry. NEUROLOGICAL: Awake and alert. Motor and sensory function grossly within normal limits. GENITOURINARY: External Genitalia: intact and normal in appearance Cervix: Dilatation: 0 Effacement: Soft Station: -3 Membranes: Intact Uterine Contractions: Irritability, occasional questionable contraction FHT's: Category: 1 Baseline: 120 Reactive: Y Variability: Moderate Decels: None (Jose Oswald MD R2) Data Data Labs Laboratory Tests Test 07/10/16 17:30 Clue Cells (Wet Prep) NONE SEEN Vaginal Trichomonas (Wet Prep) NONE SEEN Vaginal Yeast (Wet Prep) NONE SEEN (Jeramy Recinos MD) MDM Medical Record Reviewed: Yes Narrative Course / MDM [address] Fonseca at 33 5/7 weeks (UYEN 08/23/2016) w/ PMH endocarditis, Hep C, hypothyroidism, anxiety Category 1 rhythm Cervix closed No regular contractions on CTG Patient reports of cramping/brownish discharge Physical exam reassuring: Heart murmur is chronic and accounted for with mitral disease. No calf asymmetry. Regarding shortness of breath, patient states is at baseline and no concerns to auscultation Plan: Continue EFM to assure normal FHR and lack of contractions Due to report of brownish vaginal discharge, we'll send wet prep to evaluate for vaginosis (Jose Oswald MD R2) Attending Attestation The exam, history, and the medical decision-making described in the above note were completed with the assistance of the resident provider. I reviewed and agree with the findings presented. I attest that I had a [id number] encounter with the patient on the same day, and personally performed and documented my assessment and findings in the medical record. (Jeramy Recinos MD) Diagnosis Diagnosis: Primary Impression: Vaginal discharge during in third trimester Additional Impression: 33 weeks gestation of Disposition: 70 TRANSFER TO OTHER FACILITY ([facility]) Condition: Stable Jose Oswald MD R2 Jul 10, 2016 17:38 Jeramy Recinos MD Jul 10, 2016 18:20
== END 2016-07-10 18:40 | disposition short-term general hospital (02) ==
LOC: HOBED 16:16
DX: O99.283 Endocrine, nutritional and metabolic diseases complicating pregnancy, third trimester (principal); O99.343 Other mental disorders complicating pregnancy, third trimester; F14.21 Cocaine dependence, in remission; F41.9 Anxiety disorder, unspecified; R10.9 Unspecified abdominal pain; I38 Endocarditis, valve unspecified; E03.9 Hypothyroidism, unspecified; B19.20 Unspecified viral hepatitis C without hepatic coma; Z87.891 Personal history of nicotine dependence
CPT/HCPCS: 87210; 99283

== ENCOUNTER → 2016-07-22 | Outpatient (CLI) | payer MEDICAID | LOC: HPND 09:57 | PROVIDERS: ATTEND Obstetrics & Gynecology | DX: O35.5XX0 Maternal care for (suspected) damage to fetus by drugs, not applicable or unspecified (principal); O35.2XX0 Maternal care for (suspected) hereditary disease in fetus, not applicable or unspecified; O99.323 Drug use complicating pregnancy, third trimester; Z3A.00 Weeks of gestation of pregnancy not specified | CPT/HCPCS: 76816; 76818 ==

== ENCOUNTER 2016-07-28 11:08 | Observation (INO) | payer MEDICAID ==
[2016-07-28] VITALS (12 sets, daily range): BP systolic 96–117; BP diastolic 52–67; PULSE 79–94; RESP 18–20; TEMP 98.3–98.8
--- NOTE | 2016-07-28 13:08 | HHI.HP ---
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 [email or web address]. She had detoxed from her opioids and other substances prior to that visit and was diverted to [facility] and has resided there since. She is in recovery 6 months. She was admitted to [facility] 11/18/15 and found to have CRUZ and found to have severe mitral regurgitation with LV < 40. At that time she was treated with extended antibiotics and cardiac surgery deferred as she was not committed to recovery. She is now six months in recovery and close to delivery. Initial recommendation by our cardiology department has been that Margarita should deliver at [facility]. She has been seen there three times by three different residents who deferred maternal issues to our local cardiology. She has been seen by Dr. Crabtree as an outpatient who agrees that she is a high risk patient for congestive heart failure after delivery and needs an organized plan. I have been unable to reach the residents at [facility] who have seen Margarita. Margarita states she has been told to return weekly for surveillance and to their maternity topete once in labor. This is a [address] from her residential treatment program in [place]. She is overall stable, but with increasing episodes of SOB and maternal tachycardia. She has some contractions and cervix is 2+ /80/-2 and soft with BOW palpable. surveillance has been reassuring. Para: 2 : 3 History Past Medical History Narrative Medical has hypothyroidism has PTSD Dad committed [place] in [place]. known hep C Allergies-Medications (Allergen,Severity, Reaction): Coded Allergies: Cipro (Verified Allergy, Severe, Rash, 11/17/15) Home Meds Reported Medications Cholecalciferol (Vitamin D3)1,000 Unit Cap4,000 Units PO DAILY #1 BOTTLE Ref 0 06/26/16 Buspirone 10 Mg Tab10 Mg PO TID Ref 0 06/26/16 Levothyroxine 50 Mcg Tab50 Mcg PO DAILY #30 TAB Ref 0 06/26/16 Cetirizine (Zyrtec Allergy)10 Mg Cap10 Mg PO DAILY Ref 0 06/26/16 Ranitidine (Zantac)150 Mg [id number] Mg PO BID #60 TAB Ref 0 06/26/16 Vitamin (Calna)1 Tab Tab 06/26/16 Review of Systems Cardiovascular: Palpitations, Tachycardia, Edema Respiratory: Short of Breath Gastrointestinal: Abdominal Pain Genitourinary: Frequency Skin: Rash, Lesions Psychiatric: Anxiety, Substance Abuse Physical Exam Vital Signs Date Time Temp Pulse Resp B/P Pulse Ox O2 Delivery O2 Flow Rate FiO2 07/28/16 11:55 98.8 83 18 07/28/16 11:54 83 103/63 Narrative GENERAL: Well-nourished, well-developed patient. SKIN: Warm and dry. eruptions under right axilla cultured toay HEAD: Normocephalic and atraumatic. EYES: No scleral icterus. No injection or drainage. ENT: No nasal drainage noted. Mucous membranes pink. Airway patent. NECK: Supple, trachea midline. No JVD. CARDIOVASCULAR: Regular rate and rhythm 5/6 holosystolic murmur heard throughout chest rate 80's today 120's last visit RESPIRATORY: Breath sounds equal bilaterally. No accessory muscle use. BREASTS: Bilateral exam showed no masses , no retractions, no nipple discharge. ABDOMEN/GI: Abdomen soft, non-tender, bowel sounds present, no rebound, no guarding 38 cm External Genitalia: intact and normal in appearance 2+/80/-2 anterior and soft with BOW palpable mild irregular UCs FHT's: category 1 with low baseline 110 EXTREMITIES: No cyanosis or edema. BACK: Nontender without obvious deformity. No CVA tenderness. NEUROLOGICAL: Awake and alert. Motor and sensory grossly within normal limits. Five out of 5 muscle strength in all muscle groups. Normal speech. Data Data Orders Vital Signs (Adult) BRAD.Q4H (07/28/16 11:27) Complete Blood Count With Diff (07/28/16 11:27) Comprehensive Metabolic Panel (07/28/16 11:27) Westergren Sedimentation Rate (07/28/16 11:27) Vitamin D, 25-Hydroxy (07/28/16 11:27) Thyroid Stimulating Hormone (07/28/16 11:27) Diet Regular Basic (07/28/16 Lunch) ^ Activity (07/28/16 11:27) Scd / Ranjit / Foot Pump 20 (07/28/16 11:27) Heart (07/28/16 11:27) ^ Call Physician (07/28/16 11:27) Levothyroxine (Synthroid) (07/29/16 06:00) Bmkimyw-[id number]-Iron Prena Chew ( (07/29/16 09:00) Buspirone (Buspar) (07/28/16 14:00) Assessment/Plan Problem List: (1) Mitral valve regurgitation due to infection (2) Intrauterine (3) Endocarditis (4) Adjustment disorder with mixed anxiety and depressed mood Assessment and Plan I do not feel she should be managed as an outpatient until labor ensues. I think she should be induced between 37-38 weeks before she has cardiac decompensation prior to delivery. I would like the blessing of our cardiology and cardiothorac team, as we do not seem to be able to create a plan with Kimberly Caraballo. She is gradually dilated and gradually increasing her dyspnea and bouts of tachycardia. Will consult Dr. Fadi bedolla and Dr. Borrero who saw her before she was in recovery. Karuna Fonseca MD July 28, 2016 13:08
[2016-07-28 13:38] LABS: AUTOMATED NEUTROPHIL # 5.8 TH/MM3 (1.8-7.7); BASOPHIL % 0.5 % (0.0-2.0); EOSINOPHIL # 0.1 TH/MM3 (0-0.4); HEMATOCRIT 35.5 % (35.0-46.0); HEMO FLAGS DIFF FINAL; LYMPH % 22.9 % (9.0-44.0); MEAN CELL VOLUME 97.8 FL (80.0-100.0); MEAN CORPUSCULAR HEMOGLOBIN 33.8 PG (27.0-34.0); MEAN CORPUSCULAR HGB CONC 34.6 % (32.0-36.0); MONO % 7.3 % (0.0-8.0); NEUT % 68.3 % (16.0-70.0); PLATELET COUNT 173 TH/MM3 (150-450); RED BLOOD COUNT 3.62 MIL/MM3 (4.00-5.30); RED CELL DISTRIBUTION WIDTH 12.1 % (11.6-17.2); WHITE BLOOD COUNT 8.5 TH/MM3 (4.0-11.0)
[2016-07-28 14:04] LABS: ALT (GPT) 33 U/L (10-53); ANION GAP 8 MEQ/L (5-15); AST (GOT) 25 U/L (15-37); BICARBONATE 25.1 MEQ/L (21.0-32.0); BLOOD UREA NITROGEN 7 MG/DL (7-18); CHLORIDE 106 MEQ/L (98-107); GLOMERULAR FILTRATION RATE 150 ML/MIN (>89); POTASSIUM 3.7 MEQ/L (3.5-5.1); SODIUM (NA) 139 MEQ/L (136-145)
[2016-07-28 14:14] LABS: ALKALINE PHOSPHATASE 90 U/L (45-117); TOTAL BILIRUBIN ADULT 0.5 MG/DL (0.2-1.0)
[2016-07-28] MEDS: busPIRone HCL 10 MG TAB PO SCH ×2 (14:30→21:31)
[2016-07-28 17:15] LABS: BLOOD, URINE NEG (NEG); GLUCOSE,URINE NEG (NEG); KETONE, URINE NEG (NEG); NITRITE,URINE NEG (NEG); PH, URINE 7.5 (5.0-8.5); SQUAMOUS EPITHELIAL CELL URINE <1 /hpf (0-5); URINE COLOR LIGHT-YELLOW (YELLW/STRAW)
[2016-07-28 17:16] LABS: COMMENT (UR) CULT NOT INDICATED; CULTURE IF INDICATED CULT NOT INDICATED
[2016-07-28 17:19] LABS: AMPHETAMINE, URINE NEG (NEG); BARBITURATES, URINE NEG (NEG); COCAINE, URINE NEG (NEG)
--- NOTE | 2016-07-28 18:06 | PD.OB.ANTE ---
Subjective Diagnosis: (1) Mitral valve regurgitation due to infection (2) Intrauterine (3) Endocarditis (4) Adjustment disorder with mixed anxiety and depressed mood Interval History Margarita is having intermittent contractions but no cervical change since this am. No cardiac change. I have spoken with Dr. Aponte who will see Margarita in the am and strongly prefers she deliver at a tertiary care center. I have spoken with Dr. Browning who graciously agreed to re evaluate Margarita tomorrow, now that she has been clean over 6 months, but with caution as he has lost patients who used after a valve replacement who had been in recovery for a longer time. I did point out that Margarita is in a residential treatment center and has resources the exceed those available to women who are not . I have just now spoken to Dr. Gonzales who runs the maternal/ unit at [facility]. I have explained my concern about Margarita being seen in resident clinic and sent back to [facility] until labor. We reviewed that we want to avoid any decompensation prior to labor and delivery. If our cardiac team determines it is in her best interest to deliver at [facility], Dr. Gonzales will accept arrangements for her transfer. I will facilitate that in the morning based on the consultations at that time. She is stable for now. Objective Vital Signs Vital Signs Date Time Temp Pulse Resp B/P Pulse Ox O2 Delivery O2 Flow Rate FiO2 07/28/16 16:21 20 07/28/16 16:20 81 07/28/16 16:18 79 96/52 07/28/16 16:15 81 07/28/16 16:10 84 07/28/16 16:05 81 07/28/16 16:00 79 07/28/16 11:55 98.8 83 18 07/28/16 11:54 83 103/63 Lab & Micro Results Test 07/28/16 07/28/16 13:00 16:15 White Blood Count 8.5 TH/MM3 Red Blood Count 3.62 MIL/MM3 Hemoglobin 12.3 GM/DL Hematocrit 35.5 % Mean Corpuscular Volume 97.8 FL Mean Corpuscular Hemoglobin 33.8 PG Mean Corpuscular Hemoglobin 34.6 % Concent Red Cell Distribution Width 12.1 % Platelet Count 173 TH/MM3 Mean Platelet Volume 8.2 FL Neutrophils (%) (Auto) 68.3 % Lymphocytes (%) (Auto) 22.9 % Monocytes (%) (Auto) 7.3 % Eosinophils (%) (Auto) 1.0 % Basophils (%) (Auto) 0.5 % Neutrophils # (Auto) 5.8 TH/MM3 Lymphocytes # (Auto) 2.0 TH/MM3 Monocytes # (Auto) 0.6 TH/MM3 Eosinophils # (Auto) 0.1 TH/MM3 Basophils # (Auto) 0.0 TH/MM3 CBC Comment DIFF FINAL Differential Comment Erythrocyte Sedimentation Rate 45 mm/hr Sodium Level 139 MEQ/L Potassium Level 3.7 MEQ/L Chloride Level 106 MEQ/L Carbon Dioxide Level 25.1 MEQ/L Anion Gap 8 MEQ/L Blood Urea Nitrogen 7 MG/DL Creatinine 0.49 MG/DL Estimat Glomerular Filtration 150 ML/MIN Rate Random Glucose 68 MG/DL Calcium Level 8.6 MG/DL Total Bilirubin 0.5 MG/DL Aspartate Amino Transf 25 U/L (AST/SGOT) Alanine Aminotransferase 33 U/L (ALT/SGPT) Alkaline Phosphatase 90 U/L Total Protein 6.7 GM/DL Albumin 2.8 GM/DL 25-Hydroxy Vitamin D Total 19.3 ng/ML Thyroid Stimulating Hormone 2.680 uIU/ML 3rd Gen Urine Color LIGHT-YELLOW Urine Turbidity CLEAR Urine pH 7.5 Urine Specific [place] 1.007 Urine Protein NEG mg/dL Urine Glucose (UA) NEG mg/dL Urine Ketones NEG mg/dL Urine Occult Blood NEG Urine Nitrite NEG Urine Bilirubin NEG Urine Urobilinogen LESS THAN 2.0 MG/DL Urine Leukocyte Esterase NEG Urine RBC LESS THAN 1 /hpf Urine WBC LESS THAN 1 /hpf Urine Squamous Epithelial <1 /hpf Cells Urine Amorphous Sediment RARE Microscopic Urinalysis Comment CULT NOT INDICATED Urine Opiates Screen NEG Urine Barbiturates Screen NEG Urine Amphetamines Screen NEG Urine Benzodiazepines Screen NEG Urine Cocaine Screen NEG Urine Cannabinoids Screen NEG Physical Exam GENERAL: Well-nourished, well-developed patient. CARDIOVASCULAR: Regular rate and rhythm without murmurs, gallops, or rubs. RESPIRATORY: Breath sounds equal bilaterally. No accessory muscle use. ABDOMEN/GI: Abdomen soft, non-tender. Fundus: [-] GENITOURINARY: External Genitalia: intact and normal in appearance Cervix: [-] Dilatation: [-] Effacement: [-] Station: [-] Presentation: [-] Membranes: [-] Uterine Contractions: [-] FHT's: Category: [-] Baseline: [-] Reactive: [-] Variability: [-] Decels: [-] EXTREMITIES: No cyanosis or edema, non-tender, without signs of DVT. Assessment and Plan Problem List: (1) Mitral valve regurgitation due to infection Status: Acute (2) Intrauterine Status: Acute (3) Endocarditis Status: Acute (4) Adjustment disorder with mixed anxiety and depressed mood Status: Acute Assessment and Plan I do not feel she should be managed as an outpatient until labor ensues. I think she should be induced between 37-38 weeks before she has cardiac decompensation prior to delivery. I would like the blessing of our cardiology and cardiothorac team, as we do not seem to be able to create a plan with Kimberly Caraballo. She is gradually dilated and gradually increasing her dyspnea and bouts of tachycardia. Will consult Dr. Fadi bedolla and Dr. Borrero who saw her before she was in recovery. Karuna Fonseca MD July 28, 2016 18:06
[2016-07-29] VITALS (9 sets, daily range): BP systolic 107–109; BP diastolic 59–60; PULSE 81–89; RESP 18; TEMP 97.9
[2016-07-29 01:48] LABS: MRSA PCR NEGATIVE (NEGATIVE); MRSA PCR POSITIVE (NEGATIVE); STAPH AUREUS PCR NEGATIVE (NEGATIVE); STAPH AUREUS PCR POSITIVE (NEGATIVE)
[2016-07-29] MEDS ORDERED: LEVOTHYROXINE SODIUM 50 MCG TAB PO SCH (06:00)
[2016-07-29] MEDS: busPIRone HCL 10 MG TAB PO SCH ×2 (06:22→14:14)
--- NOTE | 2016-07-29 08:23 | PD.CAR.PN ---
CVT Progress Note Subjective/Hospital Course: 30 y/o female with MV endocarditis and severe MR secondary to IV drug abuse. She has been seen and followed by Dr. Aponte, Cardiology, as well. She is late in her 3rd trimester and is a high-risk patient. Objective: Vital Signs Date Time Temp Pulse Resp B/P Pulse Ox O2 Delivery O2 Flow Rate FiO2 07/29/16 06:26 97.9 88 18 107/59 07/28/16 22:35 89 07/28/16 20:07 98.3 07/28/16 20:06 94 18 117/67 07/28/16 16:21 20 07/28/16 16:20 81 07/28/16 16:18 79 96/52 07/28/16 16:15 81 07/28/16 16:10 84 07/28/16 16:05 81 07/28/16 16:00 79 07/28/16 11:55 98.8 83 18 07/28/16 11:54 83 103/63 Result Diagram: 07/28/16 1300 07/28/16 1300 Imaging: ECHO from 05/16/16 shows moderate to severe MR and moderate TR with a normal EF. Cardiovascular: RRR Telemetry: ST, NSR Plan: I have discussed this patient with Dr. Aponte and she would be at prohibitive risk for MVR in the peripartum period. Recommend medical management of her heart failure, if symptomatic. I cannot comment whether or not she should be transferred from the OB perspective and will leave that to Dr. Fonseca. Once she delivers and her volume status normalizes, she should be re-evaluated with an ECHO. Unfortunately, her prognosis is poor based on her drug habit. Malka Browning MD July 29, 2016 08:23
--- NOTE | 2016-07-29 08:53 | PD.OB.ANTE ---
Subjective Diagnosis: (1) Mitral valve regurgitation due to infection (2) Intrauterine (3) Endocarditis (4) Adjustment disorder with mixed anxiety and depressed mood Interval History Quiet night for Carlos with no significant UCs surveillance reassuring now 36 06/03 with multiparous cervix at 2+ recommended delivery at 37-38 weeks Our Cardiothoracic surgeon desires to avoid surgical intervention at least in the peripartum Our steam box tender would like her delivered at tertiary care center Antepartum ROS: Reports: movement normal Objective Vital Signs Vital Signs Date Time Temp Pulse Resp B/P Pulse Ox O2 Delivery O2 Flow Rate FiO2 07/29/16 06:26 97.9 88 18 107/59 07/28/16 22:35 89 07/28/16 20:07 98.3 07/28/16 20:06 94 18 117/67 07/28/16 16:21 20 07/28/16 16:20 81 07/28/16 16:18 79 96/52 07/28/16 16:15 81 07/28/16 16:10 84 07/28/16 16:05 81 07/28/16 16:00 79 07/28/16 11:55 98.8 83 18 07/28/16 11:54 83 103/63 Lab & Micro Results Test 07/28/16 07/28/16 13:00 16:15 White Blood Count 8.5 TH/MM3 Red Blood Count 3.62 MIL/MM3 Hemoglobin 12.3 GM/DL Hematocrit 35.5 % Mean Corpuscular Volume 97.8 FL Mean Corpuscular Hemoglobin 33.8 PG Mean Corpuscular Hemoglobin 34.6 % Concent Red Cell Distribution Width 12.1 % Platelet Count 173 TH/MM3 Mean Platelet Volume 8.2 FL Neutrophils (%) (Auto) 68.3 % Lymphocytes (%) (Auto) 22.9 % Monocytes (%) (Auto) 7.3 % Eosinophils (%) (Auto) 1.0 % Basophils (%) (Auto) 0.5 % Neutrophils # (Auto) 5.8 TH/MM3 Lymphocytes # (Auto) 2.0 TH/MM3 Monocytes # (Auto) 0.6 TH/MM3 Eosinophils # (Auto) 0.1 TH/MM3 Basophils # (Auto) 0.0 TH/MM3 CBC Comment DIFF FINAL Differential Comment Erythrocyte Sedimentation Rate 45 mm/hr Sodium Level 139 MEQ/L Potassium Level 3.7 MEQ/L Chloride Level 106 MEQ/L Carbon Dioxide Level 25.1 MEQ/L Anion Gap 8 MEQ/L Blood Urea Nitrogen 7 MG/DL Creatinine 0.49 MG/DL Estimat Glomerular Filtration 150 ML/MIN Rate Random Glucose 68 MG/DL Calcium Level 8.6 MG/DL Total Bilirubin 0.5 MG/DL Aspartate Amino Transf 25 U/L (AST/SGOT) Alanine Aminotransferase 33 U/L (ALT/SGPT) Alkaline Phosphatase 90 U/L Total Protein 6.7 GM/DL Albumin 2.8 GM/DL 25-Hydroxy Vitamin D Total 19.3 ng/ML Thyroid Stimulating Hormone 2.680 uIU/ML 3rd Gen Nasal Screen MRSA (PCR) POSITIVE Staphylococcus aureus POSITIVE (PCR)(LAB) Urine Color LIGHT-YELLOW Urine Turbidity CLEAR Urine pH 7.5 Urine Specific [place] 1.007 Urine Protein NEG mg/dL Urine Glucose (UA) NEG mg/dL Urine Ketones NEG mg/dL Urine Occult Blood NEG Urine Nitrite NEG Urine Bilirubin NEG Urine Urobilinogen LESS THAN 2.0 MG/DL Urine Leukocyte Esterase NEG Urine RBC LESS THAN 1 /hpf Urine WBC LESS THAN 1 /hpf Urine Squamous Epithelial <1 /hpf Cells Urine Amorphous Sediment RARE Microscopic Urinalysis Comment CULT NOT INDICATED Urine Opiates Screen NEG Urine Barbiturates Screen NEG Urine Amphetamines Screen NEG Urine Benzodiazepines Screen NEG Urine Cocaine Screen NEG Urine Cannabinoids Screen NEG Physical Exam GENERAL: Well-nourished, well-developed patient. CARDIOVASCULAR: Regular rate and rhythm without murmurs, gallops, or rubs. RESPIRATORY: Breath sounds equal bilaterally. No accessory muscle use. ABDOMEN/GI: Abdomen soft, non-tender. term fundus 2+ cervix with 50% effacement anterior and soft EFW 6 pounds pelvis proven EXTREMITIES: No cyanosis or edema, non-tender, without signs of DVT. lesions under right axilla are MRSA + as per swab yesterday Assessment and Plan Problem List: (1) Mitral valve regurgitation due to infection Status: Acute (2) Intrauterine Status: Acute (3) Endocarditis Status: Acute (4) Adjustment disorder with mixed anxiety and depressed mood Status: Acute Assessment and Plan Carlos is deemed too high risk with respect to maternal cardiac function by our cardiac team. I have been asked to transfer to [facility]. She has been to the high risk clinic there three times and Dr. Busowski is aware of her situation. She is currently stable but at risk for sudden afib, CHF and and maternal decompensation once delivered. She is have cervical change slowly, increased SOB, increased edema and bouts of tachycardia. Transfer while relatively stable is most ideal. I have spoken with Dr. Gonzales yesterday and Dr. Rodriguez today and they are facilitating this transfer. Karuna Fonseca MD July 29, 2016 08:53
[2016-07-29] MEDS ORDERED: PRENATAL VITAMIN CHEWABLE TAB PO SCH (09:00)
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
[2016-07-31 14:46] LABS: ECSTASY (MDMA) UR NEG (NEG); HEROIN (6-ACETYLMORPHINE) UR NEG (NEG); K2 SPICE UR NEG (NEG); OBMETHADONE UR NEG (NEG); PHENCYCLIDINE URINE NEG (NEG)
[2016-07-31 14:47] LABS: BATH SALTS (MDPV) UR NEG (NEG); GABAPENTIN UR NEG (NEG); HYDROMORPHONE U NEG (NEG); OXYCODONE (PERCODAN) NEG (NEG)
== END 2016-07-29 15:44 | disposition home or self-care (01) ==
LOC: H2EA 11:08
PROVIDERS: ADMIT Obstetrics & Gynecology; ATTEND Obstetrics & Gynecology
DX: O99.413 Diseases of the circulatory system complicating pregnancy, third trimester (principal); I50.20 Unspecified systolic (congestive) heart failure; I38 Endocarditis, valve unspecified; I34.0 Nonrheumatic mitral (valve) insufficiency; I05.9 Rheumatic mitral valve disease, unspecified; O99.283 Endocrine, nutritional and metabolic diseases complicating pregnancy, third trimester; O99.343 Other mental disorders complicating pregnancy, third trimester; E03.9 Hypothyroidism, unspecified; F43.23 Adjustment disorder with mixed anxiety and depressed mood; F43.10 Post-traumatic stress disorder, unspecified; O99.323 Drug use complicating pregnancy, third trimester; Z3A.36 36 weeks gestation of pregnancy; F19.10 Other psychoactive substance abuse, uncomplicated; Z95.2 Presence of prosthetic heart valve
CPT/HCPCS: 59025; 76815; 80053; 80307; 81001; 82306; 84443; 85025; 85652; 87640; 87641; G0378; G0481

== ENCOUNTER 2017-06-14 18:58 | Emergency (ER) | payer SELFPAY ==
[~2017-06-14] VITALS: Ht 167.6 cm; Wt 65.0 kg
[~2017-06-14 18:58] MED LIST changes: +CHOL10008 PO; -VITA100036 PO
[2017-06-14 19:20] VITALS: BP 103/57; PULSE 80; RESP 18; TEMP 98.1; O2SAT 98
[2017-06-14 20:11] VITALS: BP 113/58; PULSE 74; RESP 18; O2SAT 100
--- NOTE | 2017-06-14 20:24 | PD ---
HPI Chief Complaint: Related Problem Time Seen by Provider: 20:14 Travel History International Travel<30 days: No Contact w/Intl Traveler<30days: No Traveled to known affect area: No History of Present Illness HPI This patient was examined in the presence of a female nurse. This is a who estimates that she is 10 weeks gestational age based on last menstrual period. She presents for evaluation of pelvic cramping and vaginal bleeding. She reports that it started yesterday with just light spotting. She woke up this afternoon with heavier vaginal bleeding with clot formation. She reports her crampy left and right lower quadrant abdominal pain which is constant. She denies dysuria, flank pain, fevers or chills, nausea or vomiting, diarrhea or constipation. She has no other complaints at this time. PFSH Past Medical History Asthma: Yes Blood Disorders: No Anxiety: Yes Depression: Yes (MANIC DEPRESSEION PER PT) Heart Rhythm Problems: Yes (endocarditis) Cancer: No Cardiovascular Problems: No Chemotherapy: No Diabetes: No Diminished Hearing: No Endocrine: No Genitourinary: No Hepatitis: Yes (C) Immune Disorder: No Musculoskeletal: No Neurologic: No Psychiatric: Yes Reproductive: No Respiratory: Yes Immunizations Current: Yes Radiation Therapy: No Tetanus Vaccination: < 5 Years Influenza Vaccination: No ?: LMP: 04/06/2017 : 4 Para: 2 Miscarriage: 2 : 0 Past Surgical History AICD: No Arteriovenous Shunt: No Coronary Artery Bypass Graft: Yes Insulin Pump: No Joint Replacement: No Pacemaker: No Social History Alcohol Use: No Tobacco Use: No Substance Use: No Allergies-Medications (Allergen,Severity, Reaction): Coded Allergies: ciprofloxacin (Unverified Allergy, Severe, Rash, 06/14/17) *MDRO Multi-Drug Resistant Organism (Verified Adverse Reaction, Unknown, ) MRSA Screen (ax[place]) POSITIVE - 07/28/2016 Reported Meds & Prescriptions Reported Meds & Active Scripts Active Keflex (Cephalexin) 500 Mg Cap 500 Mg PO Q12H 7 Days Reported Vitamin D3 (Cholecalciferol) 1,000 Unit Cap 4,000 Units PO DAILY Buspirone (Buspirone HCl) 10 Mg Tab 10 Mg PO TID Levothyroxine (Levothyroxine Sodium) 50 Mcg Tab 50 Mcg PO DAILY Zyrtec Allergy (Cetirizine HCl) 10 Mg Cap 10 Mg PO DAILY Zantac (Ranitidine HCl) 150 Mg Tab 150 Mg PO BID Calna ( Vitamin) 1 Tab Tab Review of Systems Except as stated in HPI: all other systems reviewed are Neg Physical Exam Narrative GENERAL: Well-developed well-nourished female no acute distress SKIN: Warm and dry. HEAD: Atraumatic. Normocephalic. EYES: Pupils equal and round. No scleral icterus. No injection or drainage. ENT: No nasal bleeding or discharge. Mucous membranes pink and moist. NECK: Trachea midline. No JVD. CARDIOVASCULAR: Regular rate and rhythm. No murmur appreciated. RESPIRATORY: No accessory muscle use. Clear to auscultation. Breath sounds equal bilaterally. GASTROINTESTINAL: Abdomen soft, mild left and right lower quadrant tenderness without guarding. No CVA tenderness. MUSCULOSKELETAL: No obvious deformities. No clubbing. No cyanosis. No edema. NEUROLOGICAL: Awake and alert. No obvious cranial nerve deficits. Motor grossly within normal limits. Normal speech. PSYCHIATRIC: Appropriate mood and affect; insight and judgment normal. Data Data Last Documented VS Vital Signs Date Time Temp Pulse Resp B/P (MAP) Pulse Ox O2 Delivery O2 Flow Rate FiO2 06/14/17 20:11 74 18 113/58 (76) 100 Room Air 06/14/17 19:20 98.1 Orders Orders Beta Hcg (Quant/Titer) (06/14/17 20:22) Complete Blood Count With Diff (06/14/17 20:22) Comprehensive Metabolic Panel (06/14/17 20:22) Complete Rh (06/14/17 20:22) Us Pelvis (Ques Pr/Ect)W Trans (06/14/17 ) Urinalysis - C+S If Indicated (06/14/17 20:22) Iv Access Insert/Monitor (06/14/17 20:22) Ed Urine Pregnancytest Poc (06/14/17 20:22) Urine Culture (06/14/17 20:14) Ed Discharge Order (06/14/17 22:46) Labs Laboratory Tests Test 06/14/17 20:14 White Blood Count 6.2 TH/MM3 Red Blood Count 3.96 MIL/MM3 Hemoglobin 12.8 GM/DL Hematocrit 37.3 % Mean Corpuscular Volume 94.3 FL Mean Corpuscular Hemoglobin 32.4 PG Mean Corpuscular Hemoglobin Concent 34.4 % Red Cell Distribution Width 11.8 % Platelet Count 195 TH/MM3 Mean Platelet Volume 8.1 FL Neutrophils (%) (Auto) 55.1 % Lymphocytes (%) (Auto) 32.7 % Monocytes (%) (Auto) 7.6 % Eosinophils (%) (Auto) 4.0 % Basophils (%) (Auto) 0.6 % Neutrophils # (Auto) 3.4 TH/MM3 Lymphocytes # (Auto) 2.0 TH/MM3 Monocytes # (Auto) 0.5 TH/MM3 Eosinophils # (Auto) 0.2 TH/MM3 Basophils # (Auto) 0.0 TH/MM3 CBC Comment DIFF FINAL Differential Comment Urine Color RED Urine Turbidity MARKED Urine pH 6.0 Urine Specific Warren 1.026 Urine Protein 100 mg/dL Urine Glucose (UA) NEG mg/dL Urine Ketones NEG mg/dL Urine Occult Blood LARGE Urine Nitrite NEG Urine Bilirubin NEG Urine Urobilinogen LESS THAN 2.0 MG/DL Urine Leukocyte Esterase TRACE Urine RBC /hpf Urine WBC /hpf Urine Squamous Epithelial Cells 106 /hpf Urine Bacteria MOD /hpf Urine Mucus MANY /lpf Microscopic Urinalysis Comment CULTURE INDICATED Blood Urea Nitrogen 9 MG/DL Creatinine 0.78 MG/DL Random Glucose 95 MG/DL Total Protein 7.4 GM/DL Albumin 3.5 GM/DL Calcium Level 8.3 MG/DL Alkaline Phosphatase 70 U/L Aspartate Amino Transf (AST/SGOT) 62 U/L Alanine Aminotransferase (ALT/SGPT) 121 U/L Total Bilirubin 0.5 MG/DL Sodium Level 140 MEQ/L Potassium Level 3.6 MEQ/L Chloride Level 105 MEQ/L Carbon Dioxide Level 25.5 MEQ/L Anion Gap 10 MEQ/L Estimat Glomerular Filtration Rate 87 ML/MIN Human Chorionic Gonadotropin, Quant 2129 MIU/ML [facility] Medical Decision Making Medical Screen Exam Complete: Yes Emergency Medical Condition: Yes Medical Record Reviewed: Yes Differential Diagnosis Ectopic , threatened miscarriage, inevitable miscarriage, subchorionic hemorrhage Narrative Course Plan is for lab work, urinalysis, Rh, ultrasound of the pelvis. Lab work notable for a AST of 62, ALT 121, quantitative beta-hCG is 2129. Urinalysis reveals large blood, innumerable WBCs, multiple squamous epithelial cells, moderate bacteria, likely gross contaminant from vaginal bleeding. Blood type A positive so RhoGam not indicated. Ultrasound reveals CONCLUSION: 1. Positive intrauterine of 7 weeks 5 days by crown-rump length. heart rate not visualized. This could represent an intrauterine demise versus early . At this point time the plan is to have her return in 2 days for repeat quantitative beta-hCG. As an alternative, she is following up tomorrow with her collection coordinator and her collection coordinator can follow-up with her as well. She will be given a copy of her ultrasound report as well as her quantitative beta hCG number. She is stable for discharge. Keflex will be provided for bacteriuria. Diagnosis Primary Impression: Intrauterine Additional Impression: Bacteriuria during Additional Instructions: Follow-up with your collection coordinator tomorrow as scheduled. As discussed, your quantitative beta-hCG is 2129. Return in 2 days for repeat quantitative beta- hCG. Antibiotic as prescribed. Med/Other Pt SpecificInfo: Prescription(s) given Scripts Cephalexin (Keflex) 500 Mg Cap 500 MG PO Q12H for Infection for 7 Days, #14 CAP 0 Refills Prov: Lenard Cummings MD 06/14/17 Disposition: 01 DISCHARGE HOME Condition: Stable Baljit Baca Jun 14, 2017 20:24
[2017-06-14 20:53] LABS: AUTOMATED NEUTROPHIL # 3.4 TH/MM3 (1.8-7.7); BASOPHIL % 0.6 % (0.0-2.0); EOSINOPHIL # 0.2 TH/MM3 (0-0.4); HEMATOCRIT 37.3 % (35.0-46.0); HEMOGLOBIN 12.8 GM/DL (11.6-15.3); LYMPH % 32.7 % (9.0-44.0); MEAN CELL VOLUME 94.3 FL (80.0-100.0); MEAN CORPUSCULAR HEMOGLOBIN 32.4 PG (27.0-34.0); MEAN CORPUSCULAR HGB CONC 34.4 % (32.0-36.0); MEAN PLATELET VOLUME 8.1 FL (7.0-11.0); MONO % 7.6 % (0.0-8.0); MONOCYTE # 0.5 TH/MM3 (0-0.9); NEUT % 55.1 % (16.0-70.0); PLATELET COUNT 195 TH/MM3 (150-450); RED BLOOD COUNT 3.96 MIL/MM3 (4.00-5.30); RED CELL DISTRIBUTION WIDTH 11.8 % (11.6-17.2); WHITE BLOOD COUNT 6.2 TH/MM3 (4.0-11.0)
[2017-06-14 21:01] LABS: ALBUMIN 3.5 GM/DL (3.4-5.0); AST (GOT) 62 U/L (15-37); BICARBONATE 25.5 MEQ/L (21.0-32.0); BLOOD UREA NITROGEN 9 MG/DL (7-18); CALCIUM 8.3 MG/DL (8.5-10.1); CHLORIDE 105 MEQ/L (98-107); CREATININE 0.78 MG/DL (0.50-1.00); GLOMERULAR FILTRATION RATE 87 ML/MIN (>89); GLUCOSE,RANDOM 95 MG/DL (74-106); SODIUM (NA) 140 MEQ/L (136-145)
[2017-06-14 21:18] LABS: ALKALINE PHOSPHATASE 70 U/L (45-117); ALT (GPT) 121 U/L (10-53); BACTERIA, URINE MOD /hpf; BILIRUBIN, URINE NEG (NEG); BLOOD, URINE LARGE (NEG); GLUCOSE,URINE NEG (NEG); KETONE, URINE NEG (NEG); MUCUS URINE MANY /lpf (OCC); NITRITE,URINE NEG (NEG); SQUAMOUS EPITHELIAL CELL URINE 106 /hpf (0-5); TOTAL BILIRUBIN ADULT 0.5 MG/DL (0.2-1.0); TOTAL PROTEIN 7.4 GM/DL (6.4-8.2); URINE COLOR RED (YELLW/STRAW); URINE LEUKOCYTE ESTERASE TRACE (NEG)
--- NOTE | 2017-06-14 22:25 | RADRPT ---
EXAM DATE/TIME: 06/14/2017 21:34 [place] COMPARISON: No previous studies available for comparison. INDICATIONS : Pelvic pain. LAB(S): Beta-hC MEDICAL HISTORY : Hepatitis C. Glasses. Seizures. Asthma. Depression. Anxiety. SURGICAL HISTORY : CABG. ENCOUNTER: Subsequent ACUITY: 2 days PAIN SCORE: 2/10 LOCATION: Bilateral pelvis MEASUREMENTS: UTERUS: 10.1 x 6.3 x 5.2 cm ENDOMETRIAL STRIPE: 13 mm RIGHT OVARY: 2.4 x 2.7 x 1.8 cm LEFT OVARY: 2.1 x 1.8 x 1.3 cm FREE FLUID: No CROWN RUMP LENGTH: 1.4 = 7 WKS 5 DAYS FINDINGS: Intrauterine identified of 7 weeks 5 days by crown-rump length. Positive gestational sac. N o yolk sac or heart rate. Small cyst in the lower uterine segment measuring 3 mm. The ovaries are unremarkable. No free fluid. CONCLUSION: 1. Positive intrauterine of 7 weeks 5 days by crown-rump length. heart rate not visua lized. Barber Fulton MD on June 14, 2017 at 22:21 Board Certified Radiologist. This report was verified electronically.
[2017-06-14] MEDS ORDERED: CEPH-460 PO (22:48)
== END 2017-06-14 23:22 | disposition home or self-care (01) ==
LOC: NEPD 18:58
DX: O26.891 Other specified pregnancy related conditions, first trimester (principal); R82.71 Bacteriuria; Z3A.01 Less than 8 weeks gestation of pregnancy
CPT/HCPCS: 76700; 76817; 80053; 81001; 84702; 84703; 85025; 86901; 87086; 99284